=== PATIENT | female | born 1945 | race Caucasian/White ===

== ENCOUNTER 2019-07-10 12:11 | Emergency (ER) | payer MEDICARE ==
[2019-07-10] MEDS ORDERED: ALBUTEROL SULFATE 0.083% 2.5 MG/3 ML INH IH ONE (13:09)
[2019-07-10] MEDS ORDERED: BENZONATATE 100 MG CAPSULE PO ONE (13:10)
[2019-07-10 13:12] LABS: BASOPHILS % (AUTO) 0.3 % (0.0-5.0); EOSINOPHILS % (AUTO) 0.2 % (0.0-8.0); HEMATOCRIT 39.1 % (36-48); LYMPHOCYTES % (AUTO) 11.4 % (21.0-51.0); MEAN CORPUSCULAR HEMOGLOBIN 25.6 pg (27.0-33.0); MEAN CORPUSCULAR VOLUME 77.6 fL (79-99); NEUTROPHILS % (AUTO) 82.9 % (40.0-77.0); PLATELET COUNT (AUTO) 227 K/uL (130-400); RED BLOOD CELL COUNT(AUTO) 5.04 MIL/uL (4.00-5.50); RED CELL DISTRIBUTION WIDTH 12.9 % (11.0-15.5); WHITE BLOOD COUNT (AUTO) 12.4 K/uL (4.8-10.8)
[2019-07-10 13:20] LABS: CREATININE 1.2 mg/dL (0.5-1.5); POTASSIUM 4.1 mmol/L (3.5-5.1)
== END 2019-07-10 14:56 | disposition home or self-care (01) ==
LOC: EDH 12:11
DX: J20.8 Acute bronchitis due to other specified organisms (principal); I10 Essential (primary) hypertension; Z90.49 Acquired absence of other specified parts of digestive tract; Z90.710 Acquired absence of both cervix and uterus; Z88.0 Allergy status to penicillin
CPT/HCPCS: 36415; 71046; 80048; 84484; 85025; 93005; 94640

== ENCOUNTER 2022-07-10 10:04 | Emergency (ER) | payer MEDICARE ==
[~2022-07-10] VITALS: Ht 162.6 cm; Wt 122.5 kg
[2022-07-10 10:21] LABS: BASOPHILS % (AUTO) 0.7 % (0.0-5.0); EOSINOPHILS % (AUTO) 2.2 % (0.0-8.0); HEMATOCRIT 36.9 % (36-48); LYMPHOCYTES % (AUTO) 21.7 % (21.0-51.0); MEAN CORPUSCULAR HEMOGLOBIN 25.5 pg (27.0-33.0); MEAN CORPUSCULAR HGB CONC 32.5 g/dL (32.0-36.0); MEAN CORPUSCULAR VOLUME 78.3 fL (79-99); MONOCYTES % (AUTO) 6.5 % (3.0-13.0); NEUTROPHILS % (AUTO) 68.3 % (40.0-77.0); PLATELET COUNT (AUTO) 227 K/uL (130-400); RED BLOOD CELL COUNT(AUTO) 4.71 MIL/uL (4.00-5.50); RED CELL DISTRIBUTION WIDTH 13.2 % (11.0-15.5); WHITE BLOOD COUNT (AUTO) 10.4 K/uL (4.8-10.8)
[2022-07-10 10:30] LABS: CREATININE 0.9 mg/dL (0.5-1.5); POTASSIUM 4.4 mmol/L (3.5-5.1)
[2022-07-10] MEDS ORDERED: ALBUTEROL 0.083% 2.5 MG/3 ML INH IH ONE (10:30)
[2022-07-10] MEDS ORDERED: IPRATROPIUM 0.5 MG/2.5 ML INH IH ONE (10:30)
[2022-07-10 10:35] LABS: ALBUMIN 3.4 g/dL (3.5-5.0)
[2022-07-10] MEDS ORDERED: SOLU-MEDROL 125MG VIAL IVP ONE (11:00)
[2022-07-10] MEDS ORDERED: GUAIFENESIN-CODEINE 5 ML SYRUP PO STA (11:50)
[2022-07-10] MEDS ORDERED: PANTOPRAZOLE 40 MG/VIAL IVP STA (12:22)
[2022-07-10] MEDS ORDERED: IOHEXOL 350 MG/ML 100ML INFUS..BTL IV ONE (14:55)
[2022-07-10 15:31] VITALS: BP 163/61
[2022-07-10] MEDS ORDERED: AZIT500T4 PO (16:02)
[2022-07-10] MEDS ORDERED: PANT40TA55 PO (16:02)
== END 2022-07-10 16:15 | disposition home or self-care (01) ==
LOC: EDH 10:04
DX: K29.70 Gastritis, unspecified, without bleeding (principal); J06.9 Acute upper respiratory infection, unspecified; Z20.822 Contact with and (suspected) exposure to COVID-19; I10 Essential (primary) hypertension; Z90.710 Acquired absence of both cervix and uterus; Z90.49 Acquired absence of other specified parts of digestive tract; Z88.0 Allergy status to penicillin; Z79.899 Other long term (current) drug therapy
CPT/HCPCS: 99285; 74177; 96374; 71045; 87635; 96375; 84484 ×2; 80053; 83880; 85025; 87804 ×2; 36415; 93005; 94640; C9803; J2930; C9113; Q9967